=== PATIENT | female | born 1935 | race Caucasian/White ===

== ENCOUNTER 2018-11-23 23:32 | Emergency (ER) | payer BC, MEDICARE ==
[2018-11-23] MEDS ORDERED: Acetaminophen 500 MG TAB ONE ×2 (23:43→23:44)
[2018-11-24 00:04] LABS: #Eosinphils 0.2 thou/uL (0.0-0.7); #Monocytes 0.9 thou/uL (0.11-0.59); %Basophils 0.3 % (0.0-1.0); %Eosinophils 2.1 % (0.0-10.0); %Neutrophils 65.5 % (42.0-75.0); Hemoglobin 9.8 g/dL (12.0-16.0); Mean Corpuscular HGB CONC 32.7 g/dL (32.0-36.0); Mean Corpuscular Volume 88.6 fL (78.0-98.0); Mean Platelet Volume 6.9 fL (7.4-10.4); Platelet Count 362 thou/uL (130-400); RBC Distribution Width 12.7 % (11.5-14.5); Red Blood Cell (RBC) Count 3.39 mill/uL (4.20-5.40); White Blood Cell (WBC) Count 9.1 thou/uL (4.8-10.8)
[2018-11-24 00:12] LABS: Bilirubin Negative (Negative); Blood, Urine Negative (Negative); Clarity CLEAR (Clear); Glucose, Urine (Dipstick) Negative (Negative); Leukocyte Small (Negative); Nitrite Negative (Negative); Protein, Urine (Dipstick) Negative (Neg-Trace); Specific Gravity, Urine 1.004 (1.002-1.036); Urobilinogen 0.2 mg/dL (0.2-1.0)
[2018-11-24 00:14] LABS: Bacteria/HPF None Seen HPF (None Seen); Hyaline Casts/LPF 0-3 HYALINE CAST LPF (0-3 Hyaline); RBC/HPF 0-3 HPF (0-3); Squamous Epithelial None Seen HPF (0-3)
[2018-11-24 00:25] LABS: ALT (SGPT) 14 U/L (8-55); AST (SGOT) 19 U/L (5-34); Albumin 3.7 g/dL (3.4-4.8); Alkaline Phosphatase 201 U/L (40-150); Anion Gap 15 mmol/L (10-20); BUN (Urea Nitrogen) 43 mg/dL (9.8-20.1); Bilirubin, Total 0.2 mg/dL (0.2-1.2); Calc. Creatinine Clearance 0 mL/min (70-130); Calcium 9.7 mg/dL (7.8-10.44); Carbon Dioxide 21 mmol/L (23-31); Chloride 109 mmol/L (98-107); Estimated GFR-MDRD 20; Globulin 3.8 g/dL (2.4-3.5); Glucose 127 mg/dL (83-110); Lipase 82 U/L (8-78); Potassium 4.7 mmol/L (3.5-5.1); Protein, Total 7.5 g/dL (6.0-8.3); Sodium 140 mmol/L (136-145)
== END 2018-11-24 02:35 | disposition home or self-care (01) ==
LOC: ERS 23:32
DX: R10.30 Lower abdominal pain, unspecified (principal); G89.29 Other chronic pain; E03.9 Hypothyroidism, unspecified; F31.9 Bipolar disorder, unspecified; Z79.899 Other long term (current) drug therapy
CPT/HCPCS: 36415; 80053; 81003; 81015; 83690; 85025; 93005

== ENCOUNTER 2019-06-22 03:22 | Emergency (ER) | payer BC, MEDICARE ==
[2019-06-22 04:59] LABS: #Eosinphils 0.2 thou/uL (0.0-0.7); #Lymphocytes 2.2 thou/uL (1.20-3.40); #Monocytes 0.9 thou/uL (0.11-0.59); #Neutrophils 4.7 thou/uL (1.40-6.50); %Basophils 0.6 % (0.0-1.0); %Eosinophils 2.8 % (0.0-10.0); %Lymphocytes 27.7 % (21.0-51.0); %Monocytes 10.9 % (0.0-10.0); Hemoglobin 9.8 g/dL (12.0-16.0); Mean Corpuscular HGB CONC 32.8 g/dL (32.0-36.0); Mean Corpuscular Hemoglobin 29.2 pg (27.0-31.0); Mean Platelet Volume 6.9 fL (7.4-10.4); Platelet Count 275 thou/uL (130-400); RBC Distribution Width 13.8 % (11.5-14.5); Red Blood Cell (RBC) Count 3.35 mill/uL (4.20-5.40)
[2019-06-22 05:39] LABS: ALT (SGPT) 7 U/L (8-55); AST (SGOT) 13 U/L (5-34); Albumin 3.7 g/dL (3.4-4.8); Alkaline Phosphatase 74 U/L (40-150); Anion Gap 12 mmol/L (10-20); BUN (Urea Nitrogen) 40 mg/dL (9.8-20.1); Bilirubin, Total 0.2 mg/dL (0.2-1.2); Calc. Creatinine Clearance 0 mL/min (70-130); Calcium 9.8 mg/dL (7.8-10.44); Carbon Dioxide 24 mmol/L (23-31); Chloride 110 mmol/L (98-107); Estimated GFR-MDRD 19; Globulin 2.8 g/dL (2.4-3.5); Glucose 86 mg/dL (83-110); Potassium 4.4 mmol/L (3.5-5.1); Protein, Total 6.5 g/dL (6.0-8.3); Sodium 142 mmol/L (136-145)
--- NOTE | 2019-06-22 07:48 | ULT ---
PRELIMINARY REPORT/[facility]/EMERGENCY AFTER HOURS PROCEDURE: EXAM: US Duplex Bilateral Lower Extremity Veins EXAM DATE/TIME: 06/22/2019 5:00 AM CLINICAL HISTORY: 84 years old, female; Edema, localized; Lower extremity, bilateral; Leg, lower; Patient HX: Ble pain/edema x 1 wk; Additional info: Esrd TECHNIQUE: Imaging protocol: Real-time duplex ultrasound of the Bilateral Lower Extremities with 2-D golden scale, color Doppler flow and spectral waveform analysis with image documentation. Complete exam focused on the bilateral lower extremity veins. COMPARISON: No relevant prior studies available. FINDINGS: Right deep veins: Unremarkable. The common femoral, femoral, proximal profunda femoral and popliteal veins are patent without thrombus. Normal Doppler waveforms. Normal compressibility and/or augmentation response. Right superficial veins: Saphenofemoral junction is patent without thrombus. Left deep veins: Unremarkable. The common femoral, femoral, proximal profunda femoral and popliteal veins are patent without thrombus. Normal Doppler waveforms. Normal compressibility and/or augmentation response. Left superficial veins: Saphenofemoral junction is patent without thrombus. Soft tissues: Unremarkable. IMPRESSION: No acute findings. No evidence of deep vein thrombosis. Thank you for allowing us to participate in the care of your patient. Dictated and Authenticated by: Andrey Hsu MD 06/22/2019 5:50 AM Central Time ([place] & [place]) FINAL REPORT VENOUS DUPLEX SONOGRAM BILATERAL LOWER EXTREMITY: 06/22/2019 performed on an emergency basis at 0500 hrs HISTORY: Bilateral leg pain and edema. FINDINGS: Agree with the preliminary report by Dr. Hsu from [facility]. Good color and spectral Doppl er flow bilaterally. No sonographic evidence of DVT. Code QA. Transcribed Date/Time: 06/22/2019 8:39 AM
--- NOTE | 2019-06-22 08:19 | RAD ---
Chest one view HISTORY: Dyspnea. Leg swelling. FINDINGS: Cardiac silhouette is magnified by projection. Pulmonary vasculature is unremarkable. Media stinum is midline. No lobar consolidation or evidence of pneumothorax. teletype adjuster leads overlie the chest. IMPRESSION: No active cardiopulmonary abnormalities are demonstrated.
== END 2019-06-22 07:15 | disposition home or self-care (01) ==
LOC: ERS 03:22
DX: I12.0 Hypertensive chronic kidney disease with stage 5 chronic kidney disease or end stage renal disease (principal); N18.6 End stage renal disease; D63.1 Anemia in chronic kidney disease; C64.9 Malignant neoplasm of unspecified kidney, except renal pelvis; M79.89 Other specified soft tissue disorders; F31.9 Bipolar disorder, unspecified; E03.9 Hypothyroidism, unspecified; Z79.899 Other long term (current) drug therapy
CPT/HCPCS: 36415; 71045; 80053; 83880; 84484; 85025; 93005; 93970

== ENCOUNTER 2019-12-15 00:46 | Emergency (ER) | payer BC ==
[2019-12-15] MEDS ORDERED: Benzonatate 100 MG CAP ONE (01:27)
--- NOTE | 2019-12-15 08:35 | RAD ---
RADIOGRAPH CHEST 1 VIEW: Date: 12/15/2019. Time: 12:50 a.m. HISTORY: An 84-year-old female with productive cough. COMPARISON: 06/22/2019. FINDINGS: At the right base, there is a small irregular, apparently new focal density. The rest of the visuali zed lung torres are grossly clear. Lateral costophrenic angles are not effaced. No cardiomegaly or pneumothorax. IMPRESSION: 1. Questionable early infiltrate at the right lung base. 2. Recommend followup with PA and lateral views. JN [] POS: [facility]
== END 2019-12-15 01:29 | disposition home or self-care (01) ==
LOC: ERS 00:46
DX: R05 Cough (principal); I12.9 Hypertensive chronic kidney disease with stage 1 through stage 4 chronic kidney disease, or unspecified chronic kidney disease; N18.9 Chronic kidney disease, unspecified; E03.9 Hypothyroidism, unspecified; F31.9 Bipolar disorder, unspecified; Z79.899 Other long term (current) drug therapy
CPT/HCPCS: 71045

== ENCOUNTER 2019-12-15 10:41 | Outpatient (CLI) | payer BC ==
--- NOTE | 2019-12-15 13:09 | CT ---
CT Abdomen WO Con: 12/15/2019 12:00 AM HISTORY: Right kidney mass COMPARISON: 05/31/2017, 05/07/2017 TECHNIQUE: Multiple contiguous axial images were obtained and a CT of the abdomen without IV contrast. Coronal a nd sagittal reformats were performed. FINDINGS: This examination is limited for the evaluation of solid organs and vascular structures due to the lac k of intravenous contrast. Lower Chest: within normal limits. Abdomen: Liver: within normal limits. Bile Ducts: Normal caliber. Gallbladder: Multiple calcified gallstones Pancreas: within normal limits. Spleen: within normal limits. Adrenals: within normal limits. Kidneys: There is a 4.2 cm solid mass in the posterior aspect of the right kidney. This appears to martin ve enlarged compared to the prior examination. Masslike areas of density are seen in the perinephric fat adjacent to this mass. A 2.2 cm hypodensity emanating from the superior pole the righ t kidney likely represents a cyst. There is cortical thinning of the left kidney. Bowel: Normal caliber. Mesenteric Lymph Nodes: No enlarged mesenteric lymph nodes. Peritoneum: No ascites or free air, no fluid collection. Vessels: Normal caliber aorta Retroperitoneum: within normal limits. Abdominal Wall: within normal limits. Bones: Degenerative changes are seen in the spine. There appear to be mixed lytic/sclerotic lesions w ithin the sacrum and lower lumbar spine. IMPRESSION: 1. Enlarging right renal mass is concerning for renal cell carcinoma. 2. Cholelithiasis
== END 2019-12-15 10:42 | disposition home or self-care (01) ==
LOC: BICCT 10:41
PROVIDERS: ATTEND Urology
DX: N28.89 Other specified disorders of kidney and ureter (principal); K80.20 Calculus of gallbladder without cholecystitis without obstruction
CPT/HCPCS: 74150

== ENCOUNTER 2019-12-18 20:57 | Emergency (ER) | payer BC ==
--- NOTE | 2019-12-18 21:45 | RAD ---
XR Chest Pa Lat STANDARD HISTORY: Cough. COMPARISON: None. FINDINGS: Heart size is within normal limits. Aorta is mildly tortuous. The lungs are clear of infilt rates. Chronic appearing blunting to the right costophrenic angle is noted. IMPRESSION: No active intrathoracic disease.
[2019-12-18 22:01] LABS: #Basophils 0.1 thou/uL (0.0-0.2); #Eosinphils 0.4 thou/uL (0.0-0.7); #Lymphocytes 2.3 thou/uL (1.20-3.40); #Monocytes 0.8 thou/uL (0.11-0.59); %Basophils 0.5 % (0.0-1.0); %Eosinophils 4.1 % (0.0-10.0); %Monocytes 8.8 % (0.0-10.0); %Neutrophils 62.6 % (42.0-75.0); Hemoglobin 10.1 g/dL (12.0-16.0); Mean Corpuscular HGB CONC 32.5 g/dL (32.0-36.0); Mean Corpuscular Hemoglobin 28.1 pg (27.0-31.0); Mean Corpuscular Volume 86.5 fL (78.0-98.0); Mean Platelet Volume 7.1 fL (7.4-10.4); Platelet Count 376 thou/uL (130-400); RBC Distribution Width 13.3 % (11.5-14.5); Red Blood Cell (RBC) Count 3.61 mill/uL (4.20-5.40); White Blood Cell (WBC) Count 9.6 thou/uL (4.8-10.8)
[2019-12-18 22:28] LABS: ALT (SGPT) 20 U/L (8-55); AST (SGOT) 21 U/L (5-34); Albumin 4.1 g/dL (3.4-4.8); Alkaline Phosphatase 80 U/L (40-110); Anion Gap 9 mmol/L (10-20); BUN (Urea Nitrogen) 33 mg/dL (9.8-20.1); Bilirubin, Total 0.2 mg/dL (0.2-1.2); Calc. Creatinine Clearance 0 mL/min (70-130); Calcium 10.6 mg/dL (7.8-10.44); Carbon Dioxide 28 mmol/L (23-31); Chloride 109 mmol/L (98-107); Estimated GFR-MDRD 19; Globulin 3.4 g/dL (2.4-3.5); Glucose 105 mg/dL (83-110); Potassium 4.6 mmol/L (3.5-5.1); Protein, Total 7.5 g/dL (6.0-8.3); Sodium 141 mmol/L (136-145)
== END 2019-12-18 23:28 | disposition home or self-care (01) ==
LOC: ERS 20:57
DX: J18.9 Pneumonia, unspecified organism (principal); R60.0 Localized edema; E03.9 Hypothyroidism, unspecified; I12.9 Hypertensive chronic kidney disease with stage 1 through stage 4 chronic kidney disease, or unspecified chronic kidney disease; N18.9 Chronic kidney disease, unspecified; F31.9 Bipolar disorder, unspecified; Z79.899 Other long term (current) drug therapy
CPT/HCPCS: 36415; 71046; 80053; 83880; 85025

== ENCOUNTER 2019-12-29 03:08 | Emergency (ER) | payer BC | END 2019-12-29 04:23 | disposition home or self-care (01) | LOC: ERS 03:08 | DX: R60.0 Localized edema (principal); M79.89 Other specified soft tissue disorders; I10 Essential (primary) hypertension; F31.9 Bipolar disorder, unspecified; E03.9 Hypothyroidism, unspecified; I12.9 Hypertensive chronic kidney disease with stage 1 through stage 4 chronic kidney disease, or unspecified chronic kidney disease; N18.9 Chronic kidney disease, unspecified; Z79.899 Other long term (current) drug therapy | CPT/HCPCS: 99282 ==

== ENCOUNTER 2020-01-06 05:44 | Observation (INO) | payer BC ==
[2020-01-06 06:51] LABS: #Basophils 0.1 thou/uL (0.0-0.2); #Eosinphils 0.3 thou/uL (0.0-0.7); #Lymphocytes 2.1 thou/uL (1.20-3.40); #Monocytes 0.5 thou/uL (0.11-0.59); #Neutrophils 5.1 thou/uL (1.40-6.50); %Basophils 0.9 % (0.0-1.0); %Eosinophils 3.9 % (0.0-10.0); %Lymphocytes 26.1 % (21.0-51.0); %Monocytes 6.3 % (0.0-10.0); %Neutrophils 62.8 % (42.0-75.0); Hemoglobin 10.7 g/dL (12.0-16.0); Mean Corpuscular HGB CONC 32.2 g/dL (32.0-36.0); Mean Corpuscular Hemoglobin 29.2 pg (27.0-31.0); Mean Corpuscular Volume 90.6 fL (78.0-98.0); Mean Platelet Volume 7.3 fL (7.4-10.4); Platelet Count 329 thou/uL (130-400); RBC Distribution Width 15.1 % (11.5-14.5); Red Blood Cell (RBC) Count 3.65 mill/uL (4.20-5.40); White Blood Cell (WBC) Count 8.1 thou/uL (4.8-10.8)
[2020-01-06 07:11] LABS: ALT (SGPT) 15 U/L (8-55); AST (SGOT) 17 U/L (5-34); Albumin 4.1 g/dL (3.4-4.8); Alkaline Phosphatase 86 U/L (40-110); Anion Gap 15 mmol/L (10-20); BUN (Urea Nitrogen) 47 mg/dL (9.8-20.1); Bilirubin, Total 0.3 mg/dL (0.2-1.2); Calc. Creatinine Clearance 0 mL/min (70-130); Carbon Dioxide 18 mmol/L (23-31); Chloride 115 mmol/L (98-107); Estimated GFR-MDRD 20; Globulin 2.9 g/dL (2.4-3.5); Glucose 111 mg/dL (83-110); Sodium 143 mmol/L (136-145)
[2020-01-06 08:05] LABS: Bacteria/HPF None Seen HPF (None Seen); Bilirubin Negative (Negative); Blood, Urine Negative (Negative); Clarity Clear (Clear); Glucose, Urine (Dipstick) Normal (Negative); Leukocyte 25 Leu/uL (Negative); Nitrite Negative (Negative); Protein, Urine (Dipstick) Negative (Neg-Trace); RBC/HPF 0-3 HPF (0-3); Squamous Epithelial None Seen HPF (0-3); Urobilinogen Normal mg/dL (Less than 2); WBC/HPF 0-3 HPF (0-3)
[2020-01-06] MEDS ORDERED: Nitroglycerin 2% Ointment 1 INCH/1 GM Packet ONE (08:27)
[2020-01-06] MEDS ORDERED: Clopidogrel Bisulfate 75 MG TAB ONE (08:28)
[2020-01-06 09:44] LABS: Troponin I 0.014 ng/mL (< 0.028)
--- NOTE | 2020-01-06 09:44 | RAD ---
CHEST TWO VIEWS: HISTORY: Chest pain. COMPARISON: FINDINGS: Two views of the chest show normal sized cardiomediastinal silhouette. There is no evidence of consol idation, mass, or pleural effusion. Degenerative changes are seen in the spine. IMPRESSION: No evidence of acute cardiopulmonary disease. POS: [facility]
--- NOTE | 2020-01-06 10:05 | HP ---
PRIMARY CARE PROVIDER: Dr. Trevon Sepulveda. HISTORY OF PRESENT ILLNESS: Referred to the Hospitalist Service by [facility]. The patient presents with chest pain started about 03:00 a.m., lasted about a half an hour, described as a pressure sensation, constant, some radiation to the left arm. No shortness of breath. No sweats. No nausea. She has had some similar like pains off and on for years. PAST MEDICAL HISTORY: Pertinent for; 1. Hypertension. 2. Chronic kidney disease stage 4. 3. Unresected renal cell carcinoma on the right for about 1 year. 4. Hypothyroidism. CURRENT MEDICATIONS: 1. Levothyroxine 137 mcg a day. 2. Doxazosin 1 mg a day. 3. Metoprolol 25 mg a day. 4. Calcium D3 one tablet a day. ALLERGIES: THE PATIENT IS UNABLE TO TAKE ASPIRIN AND NSAID SECONDARY TO KIDNEY FAILURE. PAST SURGICAL HISTORY: 1. She has had renal biopsy about a year ago. 2. Exploratory lap in 1964 revealed fibroids, incidental appendectomy at that time. 3. She is post hysterectomy in 1985. 4. She has had two C sections in the past. FAMILY HISTORY: Father of coronary artery disease. Mother of tuberculosis. SOCIAL HISTORY: . Full code status. , next of kin. Does not smoke. Drinks occasional wine. REVIEW OF SYSTEMS: GENERAL: No headaches, dizziness, or fainting. EYES: She wears glasses. No double vision, blurred vision, or flashing lights. She does have floaters. EARS, NOSE, AND THROAT: No ear pain or drainage. No nasal bleeding. No trouble swallowing. CARDIAC: No orthopnea or paroxysmal nocturnal dyspnea. RESPIRATIONS: She has mild cough. She was diagnosed as bronchitis 2 weeks ago and has been on oral antibiotics. GASTROINTESTINAL: No nausea, vomiting, diarrhea, or constipation. GENITOURINARY: No hematuria or dysuria. MUSCULOSKELETAL: She has edema/swelling in her legs. She relates it to her kidney disease. No pain in muscles or joints. NEUROLOGICAL: No strokes, seizures, or focal weakness. PSYCHIATRIC: No anxiety or depression. SKIN: No bruising, bleeding, or rash. HEME/LYMPH: No tender or swollen lymph nodes in axilla, inguinal, or cervical area. PHYSICAL EXAMINATION: GENERAL: The patient is alert, cooperative, pleasant lady, in no distress. VITAL SIGNS: Blood pressure has ranged from 155/71 to 178/77, pulse is 80 plus or minus, respirations 16, O2 saturation in the high 90s on room air, temperature 97.9. HEAD, EYES, EARS, NOSE, AND THROAT: Revealed pupils are equal, round, and reactive. Extraocular movements are intact. Sclerae are white. Tympanic membranes are clear. Nose is clear. Oral mucous membranes are wet. NECK: Supple without jugular venous distention, adenopathy, or thyromegaly. CHEST: Clear to auscultation and percussion. HEART: Regular rate and rhythm. First and second heart sounds are clear. There are no appreciated murmurs or gallops. ABDOMEN: Soft. Bowel sounds are normal. There is no hepatosplenomegaly. No mass. No rebound. No bruits. EXTREMITIES: Revealed 1+ edema with no cyanosis or clubbing. Pulses; carotid, radial, femoral, and dorsalis pedis pulses are intact and symmetric. SKIN: Warm and dry without bruises or rash. HEME/LYMPH: Reveals no tender or swollen lymph nodes in axilla, inguinal, or cervical area. DIAGNOSTIC DATA: EKG, regular sinus rhythm within normal limits, reviewed by me. Chest x-ray personally reviewed, vertical heart. No cardiomegaly, CHF, infiltrate, mass. LABORATORY DATA: CBC; white count 8.1, hemoglobin 10.7 with normocytic normochromic indices, platelet count 329,000. Creatinine 2.29, BUN 47, chloride 115, CO2 of 18. Liver function tests normal. Initial creatinine less than 0.01. ADMITTING DIAGNOSES: 1. Chest pain, somewhat atypical. The patient has been given Plavix in the emergency room. 2. Chronic kidney disease stage 4, followed by Dr. Voss. 3. 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 Medel. 4. Hypertension. 5. Hypothyroidism, on therapy. PLAN: Nuclear medicine, cardiac stress test review afterwards. Job ID: [id number]
[2020-01-06] MEDS ORDERED: Ondansetron PF 4 MG/2 ML Vial IVP PRN (10:42)
[2020-01-06] MEDS ORDERED: Ondansetron ODT 4 MG TAB PO PRN (10:42)
[2020-01-06 10:53] VITALS: BMI 26.6
[2020-01-06] MEDS ORDERED: ADENOSINE 60 MG/20 ML VIAL ONE (12:17)
[2020-01-06 15:13] VITALS: BP 186/77; TEMP 97.8
--- NOTE | 2020-01-06 16:31 | NM ---
Nuclear medicine myocardial perfusion scan: 01/06/2020 COMPARISON: None HISTORY: Chest pain with hypertension TECHNIQUE: SPECT imaging of the left ventricular myocardium obtained during stress and rest following the intravenous administration of 27.5 and 9.0mCi technetium 99 M labeled sestamibi respectively. FINDINGS: No discrete reversible defect. Diaphragmatic attenuation noted at the level of the inferior wall. TID is 1.1. Left ventricular wall motion appears within normal limits. End-diastolic volume is 99 mL and end systolic volume is 48 mL. Left ventricular ejection fraction is estimated at 51%. IMPRESSION: No discrete reversible defect. Normal left ventricular wall motion. Estimated LVEF of 51%.
[2020-01-07] MEDS ORDERED: Clopidogrel Bisulfate 75 MG TAB PO SCH (09:00)
--- NOTE | 2020-01-08 08:44 | DIS ---
DATE OF ADMISSION: 01/06/2020 DATE OF DISCHARGE: 01/06/2020 PRIMARY CARE PROVIDER: Dr. Trevon Sepulveda. DISPOSITION: Discharged home. FINAL DIAGNOSES: 1. Noncardiac chest pain. 2. Hypertension. 3. Chronic kidney disease, stage 4. 4. Renal cell carcinoma. DISCHARGE MEDICATIONS: Same as her home medicines: 1. Ferrous sulfate 325 mg a day. 2. Calcium plus D daily. 3. Levothyroxine 37 mcg a day. 4. Cardura 1 mg at bedtime. 5. Divalproex 500 mg p.o. at bedtime, ER. 6. Metoprolol 50 mg a day. The patient is intolerant of NSAIDs and aspirin secondary to renal failure. DIET: Heart healthy. CODE STATUS: Full. PENDING AT THE TIME OF DISCHARGE: Nothing. HOSPITAL COURSE: The patient presented to emergency room with chest pain started about 3 a.m., lasted a half an hour, pressure sensation. EKG was unrevealing. Chest x-ray was unrevealing. CBC showed a mild anemia consistent with chronic kidney disease. Cardiac enzymes normal x3. Creatinine 2.29, BUN 47, consistent with old findings. Nuclear medicine stress test was without evidence of reversible ischemia, EF of 51%. This was discussed with the patient. She is being discharged for followup with her PCP in 3 days on her home medications. CONSULTATIONS: No consultations. PROCEDURES PERFORMED: No procedures. Job ID: [id number] MTDD
== END 2020-01-06 17:56 ==
LOC: ERS 05:44 → 2SW 08:29
PROVIDERS: ADMIT Internal Medicine; ATTEND Internal Medicine
DX: R07.89 Other chest pain (principal); I12.9 Hypertensive chronic kidney disease with stage 1 through stage 4 chronic kidney disease, or unspecified chronic kidney disease; N18.4 Chronic kidney disease, stage 4 (severe); C64.1 Malignant neoplasm of right kidney, except renal pelvis; E03.9 Hypothyroidism, unspecified; Z79.899 Other long term (current) drug therapy; Z88.6 Allergy status to analgesic agent
CPT/HCPCS: 36415; 71046; 78452; 80053; 81003; 81015; 83880; 84484; 85025; 87804; 93005; 93017; 94760; A9500; G0378; J0153

== ENCOUNTER 2020-05-31 06:09 | Emergency (ER) | payer BC, OTHER ==
[2020-05-31 14:46] LABS: SARS-CoV-2 MS2 Positive; SARS-CoV-2 N Gene Negative; SARS-CoV-2 S Gene Negative; SARS-CoV-2 orf1ab Negative
== END 2020-05-31 06:37 | disposition home or self-care (01) ==
LOC: ERS 06:09
DX: J02.9 Acute pharyngitis, unspecified (principal); R05 Cough; R52 Pain, unspecified; E03.9 Hypothyroidism, unspecified; I10 Essential (primary) hypertension; F31.9 Bipolar disorder, unspecified; Z20.828 Contact with and (suspected) exposure to other viral communicable diseases; Z85.528 Personal history of other malignant neoplasm of kidney
CPT/HCPCS: 87635; 99283; U0003

== ENCOUNTER 2020-06-11 12:22 | Outpatient (CLI) | payer BC ==
--- NOTE | 2020-06-11 13:19 | ULT ---
ULTRASOUND RETROPERITONEUM COMPLETE: (RENAL) DATE: 06/11/2020 HISTORY: 85-year-old female with clear cell carcinoma of right kidney and stage IV chronic kidney disease. COMPARISON: No prior renal ultrasounds. FINDINGS: Right kidney: 11.5 x 8 x 7.5 cm. Left kidney: 10.5 x 5.5 x 6 cm. No hydronephrosis bilaterally. Circumscribed intermediate echogenicity (isoechoic to renal parenchyma) 4 x 3.3 x 3.5 cm solid mass a t posterior aspect of right renal lower pole. Several bilateral renal cysts. The most prominent are as follows: 1.5 cm right renal lower pole cyst. 2.5 cm right renal upper pole cyst. 2 x 1.5 cm left renal lower pole cyst. No abnormality of bladder identified. Bladder volume 375 mL at time of scan. IMPRESSION: 1) 4 cm right renal tumor mass. 2) several bilateral renal cysts.
== END 2020-06-11 12:23 | disposition home or self-care (01) ==
LOC: BICULT 12:22
PROVIDERS: ATTEND Urology
DX: C64.1 Malignant neoplasm of right kidney, except renal pelvis (principal); N28.1 Cyst of kidney, acquired; N28.89 Other specified disorders of kidney and ureter
CPT/HCPCS: 76770

== ENCOUNTER 2022-04-22 10:02 | Emergency (ER) | payer BC ==
[2022-04-22] MEDS ORDERED: Lorazepam 2 MG/ML VIAL ONE (10:47)
[2022-04-22] MEDS ORDERED: Haloperidol Lactate 5 MG/ML VIAL ONE (10:54)
[2022-04-22 11:36] LABS: Acetaminophen Less than 10.0 mcg/mL (10.0-30.0); Alcohol Less than 10 mg/dL (Less than 10); Salicylate Less than 8.0 mg/dL (15.0-30.0)
[2022-04-22 11:38] LABS: ALT (SGPT) 13 U/L (8-55); AST (SGOT) 20 U/L (5-34); Albumin 3.7 g/dL (3.4-4.8); Alkaline Phosphatase 111 U/L (40-110); Anion Gap 17 mmol/L (10-20); BUN (Urea Nitrogen) 54 mg/dL (9.8-20.1); Bilirubin, Total 0.5 mg/dL (0.2-1.2); CK (CPK) 60 U/L (29-168); Calc. Creatinine Clearance 0 mL/min (70-130); Calcium 9.8 mg/dL (7.8-10.44); Carbon Dioxide 18 mmol/L (23-31); Chloride 109 mmol/L (98-107); Globulin 3.3 g/dL (2.4-3.5); Glucose 148 mg/dL (83-110); Potassium 4.5 mmol/L (3.5-5.1); Sodium 139 mmol/L (136-145)
[2022-04-22 11:39] LABS: #Basophils 0.1 thou/uL (0.0-0.2); #Eosinphils 0.1 thou/uL (0.0-0.7); #Lymphocytes 1.2 thou/uL (1.20-3.40); #Monocytes 0.7 thou/uL (0.11-0.59); #Neutrophils 9.8 thou/uL (1.40-6.50); %Basophils 0.6 % (0.0-1.0); %Eosinophils 0.9 % (0.0-10.0); %Monocytes 5.6 % (0.0-10.0); %Neutrophils 82.9 % (42.0-75.0); Band 5 % (5-11); Eosinophils 1 % (0-10); Hemoglobin 10.8 g/dL (12.0-16.0); Hypochromia SLIGHT = 6-15 cells (100X) (0-5/hpf); Lymphocytes 8 % (21-51); MDiff Complete? YES; Mean Corpuscular Hemoglobin 24.8 pg (27.0-31.0); Mean Corpuscular Volume 82.6 fL (78.0-98.0); Mean Platelet Volume 8.6 fL (7.4-10.4); Monocytes 10 % (0-10); Neutrophil 76 % (42-75); Platelet Count 244 thou/uL (130-400); Platelet Morphology Comment Appears Adequate; Polychromasia SLIGHT = 2-3 cells (100X) (0-2/hpf); RBC Distribution Width 18.3 % (11.5-14.5); Red Blood Cell (RBC) Count 4.35 mill/uL (4.20-5.40); White Blood Cell (WBC) Count 12.2 thou/uL (4.8-10.8)
[2022-04-22 13:58] LABS: Bacteria/HPF None Seen HPF (None Seen); Bilirubin Negative (Negative); Blood, Urine Trace (Negative); Clarity Clear (Clear); Glucose, Urine (Dipstick) Normal (Negative); Ketone, Urine Negative (Negative); Leukocyte Negative Leu/uL (Negative); Nitrite Negative (Negative); Protein, Urine (Dipstick) Negative (Neg-Trace); RBC/HPF 0-3 HPF (0-3); Specific Gravity, Urine 1.006 (1.002-1.036); Squamous Epithelial None Seen HPF (0-3); Urobilinogen Normal mg/dL (Less than 2); WBC/HPF 0-3 HPF (0-3)
[2022-04-22 14:05] LABS: Amphetamine Not Detected (NotDetected); Barbiturates Screen Not Detected (NotDetected); Benzodiazepine Screen Not Detected (NotDetected); Cocaine Metabolite Screen Not Detected (NotDetected); Methadone Not Detected (NotDetected); Methamphetamine Not Detected (NotDetected); Opiate Screen Detected (NotDetected); Oxycodone Screen Not Detected (NotDetected); Phencyclidine (PCP) Not Detected (NotDetected); THC/Cannabinoid Screen Not Detected (NotDetected); Tricyclic Screen Not Detected (NotDetected)
[2022-04-22 16:05] LABS: SARS-CoV-2 NAA Rapid Test Not Detected (NotDetected)
[2022-04-23] MEDS ORDERED: Doxycycline 100 MG CAP PO SCH (09:00)
[2022-04-23] MEDS ORDERED: Acetaminophen 325 MG TAB PO PRN (10:12)
[2022-04-23] MEDS ORDERED: hydrOXYzine Pamoate 25 mg Capsule PO PRN (10:12)
[2022-04-23] MEDS ORDERED: Levothyroxine 175 MCG TAB PO SCH (10:15)
[2022-04-23] MEDS ORDERED: OLANZapine 5 MG TAB PO SCH (10:15)
[2022-04-23] MEDS ORDERED: Haloperidol Lactate 5 MG/ML VIAL IM SCH (10:15)
[2022-04-23] MEDS ORDERED: Lorazepam 2 MG/ML VIAL IM SCH (10:15)
[2022-04-23] MEDS ORDERED: traZODone HCl 50 MG TAB PO PRN (10:21)
[2022-04-23] MEDS ORDERED: Amoxicillin/Potassium Clav 500 MG TAB PO SCH (10:30)
[2022-04-23] MEDS ORDERED: Doxazosin Mesylate 1 MG TAB PO SCH (10:30)
[2022-04-23] MEDS ORDERED: Ziprasidone 20 MG CAP PO SCH (10:30)
[2022-04-23] MEDS ORDERED: Furosemide 40 MG TAB ONE (10:51)
[2022-04-23] MEDS ORDERED: Nicotine 14 MG PATCH TOP SCH (11:00)
[2022-04-23] MEDS ORDERED: risperiDONE 1 MG TAB PO SCH (21:00)
== END 2022-04-23 20:11 ==
LOC: ERS 10:02
DX: F31.9 Bipolar disorder, unspecified (principal); I12.9 Hypertensive chronic kidney disease with stage 1 through stage 4 chronic kidney disease, or unspecified chronic kidney disease; N18.9 Chronic kidney disease, unspecified; E03.9 Hypothyroidism, unspecified; Z20.822 Contact with and (suspected) exposure to COVID-19; Z79.890 Hormone replacement therapy; Z79.899 Other long term (current) drug therapy
CPT/HCPCS: 36415; 51701; 80053; 80306; 80307; 81003; 81015; 82550; 84443; 85025; 93005; 96372; J1630; J2060; U0002

== ENCOUNTER 2022-09-09 08:14 | Inpatient (IN) | payer BC ==
[2022-09-09] MEDS ORDERED: CEFAZOLIN 2 GM VIAL ONE (08:48)
[2022-09-09 09:12] LABS: #Eosinphils 0.3 thou/uL (0.0-0.7); %Monocytes 7.7 % (0.0-10.0); Mean Corpuscular Volume 83.9 fL (78.0-98.0); Mean Platelet Volume 7.8 fL (7.4-10.4)
[2022-09-09 09:17] LABS: #Lymphocytes 1.1 thou/uL (1.20-3.40); #Monocytes 0.6 thou/uL (0.11-0.59); #Neutrophils 5.6 thou/uL (1.40-6.50); %Basophils 0.3 % (0.0-1.0); %Eosinophils 4.1 % (0.0-10.0); %Lymphocytes 14.1 % (21.0-51.0); %Neutrophils 73.8 % (42.0-75.0); Hemoglobin 8.6 g/dL (12.0-16.0); Mean Corpuscular HGB CONC 30.4 g/dL (32.0-36.0); Mean Corpuscular Hemoglobin 25.5 pg (27.0-31.0); Platelet Count 280 thou/uL (130-400); RBC Distribution Width 16.1 % (11.5-14.5); Red Blood Cell (RBC) Count 3.35 mill/uL (4.20-5.40); White Blood Cell (WBC) Count 7.6 thou/uL (4.8-10.8)
[2022-09-09 09:25] LABS: ALT (SGPT) 14 U/L (8-55); AST (SGOT) 17 U/L (5-34); Albumin 3.6 g/dL (3.4-4.8); Alkaline Phosphatase 107 U/L (40-110); Anion Gap 15 mmol/L (10-20); BUN (Urea Nitrogen) 56 mg/dL (9.8-20.1); Bilirubin, Total 0.3 mg/dL (0.2-1.2); Calc. Creatinine Clearance 0 mL/min (70-130); Calcium 9.6 mg/dL (7.8-10.44); Carbon Dioxide 20 mmol/L (23-31); Chloride 110 mmol/L (98-107); Estimated GFR 14; Globulin 3.1 g/dL (2.4-3.5); Glucose 85 mg/dL (83-110); Potassium 4.8 mmol/L (3.5-5.1); Protein, Total 6.7 g/dL (5.8-8.1); Sodium 140 mmol/L (136-145)
[2022-09-09] MEDS ORDERED: Senokot S 8.6-50 MG TAB PO PRN (12:04)
[2022-09-09] MEDS ORDERED: Ondansetron PF 4 MG/2 ML Vial IVP PRN (12:14)
[2022-09-09] MEDS ORDERED: Ondansetron ODT 4 MG TAB PO PRN (12:14)
[2022-09-09 12:32] LABS: Troponin I 0.017 ng/mL (< 0.028)
[2022-09-09] MEDS ORDERED: CEFAZOLIN 1 GM VIAL SLOW IVP SCH (14:00)
[2022-09-09] MEDS: Furosemide 40 MG/4 ML VIAL SLOW IVP SCH ×2 (14:38→14:51)
[2022-09-09] MEDS: Albumin 25% 25 GM/100 ML BOT IVPB SCH ×3 (14:38→21:00)
[2022-09-09 15:14] LABS: Troponin I 0.013 ng/mL (< 0.028)
[2022-09-09] MEDS ORDERED: Furosemide 100 MG/10 ML VIAL SLOW IVP SCH (18:00)
[2022-09-09 19:08] LABS: Troponin I 0.015 ng/mL (< 0.028)
[2022-09-09 20:26] LABS: SARS-CoV-2 NAA Rapid Test Not Detected (NotDetected)
[2022-09-09] MEDS: hydrALAZINE 25 MG TAB PO SCH (21:03)
[2022-09-09] MEDS: Isosorbide Dinitrate 20 MG TAB PO SCH (21:04)
[2022-09-09] MEDS ORDERED: CEFAZOLIN 1 GM in Sodium Chloride 0.9% 100 ML IVPB SCH (22:00)
[2022-09-09] MEDS: Acetaminophen 325 MG TAB PO PRN (22:32)
[2022-09-09] MEDS: CEFAZOLIN 1 GM in Sodium Chloride 0.9% 100 ML IVPB SCH (23:23)
[2022-09-10 02:26] LABS: Bacteria/HPF None Seen HPF (None Seen); Bilirubin Negative (Negative); Blood, Urine Negative (Negative); Clarity Clear (Clear); Glucose, Urine (Dipstick) Normal (Negative); Ketone, Urine Negative (Negative); Leukocyte Negative Leu/uL (Negative); Nitrite Negative (Negative); Protein, Urine (Dipstick) Negative (Neg-Trace); RBC/HPF 0-3 HPF (0-3); Specific Gravity, Urine 1.006 (1.002-1.036); Squamous Epithelial None Seen HPF (0-3); Urobilinogen Normal mg/dL (Less than 2); WBC/HPF 0-3 HPF (0-3)
[2022-09-10] MEDS: Albumin 25% 25 GM/100 ML BOT IVPB SCH ×2 (03:35→09:59)
[2022-09-10 04:48] LABS: #Eosinphils 0.3 thou/uL (0.0-0.7); #Lymphocytes 1.1 thou/uL (1.20-3.40); #Monocytes 0.6 thou/uL (0.11-0.59); #Neutrophils 4.6 thou/uL (1.40-6.50); %Basophils 0.6 % (0.0-1.0); %Eosinophils 4.5 % (0.0-10.0); %Lymphocytes 16.5 % (21.0-51.0); %Neutrophils 69.4 % (42.0-75.0); Hemoglobin 7.8 g/dL (12.0-16.0); Mean Corpuscular HGB CONC 31.6 g/dL (32.0-36.0); Mean Corpuscular Hemoglobin 26.2 pg (27.0-31.0); Mean Platelet Volume 8.2 fL (7.4-10.4); Platelet Count 236 thou/uL (130-400); RBC Distribution Width 16.2 % (11.5-14.5); Red Blood Cell (RBC) Count 2.95 mill/uL (4.20-5.40); White Blood Cell (WBC) Count 6.7 thou/uL (4.8-10.8)
[2022-09-10 05:02] LABS: Anion Gap 17 mmol/L (10-20); BUN (Urea Nitrogen) 62 mg/dL (9.8-20.1); Calc. Creatinine Clearance 15 mL/min (70-130); Carbon Dioxide 20 mmol/L (23-31); Chloride 111 mmol/L (98-107); Estimated GFR 13; Glucose 84 mg/dL (83-110); Potassium 5.5 mmol/L (3.5-5.1); Sodium 142 mmol/L (136-145)
[2022-09-10] MEDS ORDERED: Furosemide 40 MG/4 ML VIAL SLOW IVP SCH (06:00)
[2022-09-10] MEDS: Acetaminophen 325 MG TAB PO PRN ×2 (06:13→20:33)
[2022-09-10] MEDS: Furosemide 40 MG/4 ML VIAL SLOW IVP SCH ×2 (06:13→14:31)
[2022-09-10] MEDS: hydrALAZINE 25 MG TAB PO SCH ×3 (09:59→20:44)
[2022-09-10] MEDS: Isosorbide Dinitrate 20 MG TAB PO SCH ×3 (10:00→20:33)
[2022-09-10] MEDS: CEFAZOLIN 1 GM in Sodium Chloride 0.9% 100 ML IVPB SCH ×2 (10:38→20:33)
[2022-09-10] MEDS ORDERED: hydrALAZINE 25 MG TAB PO SCH (11:15)
[2022-09-10] MEDS: DOBUTamine 500 mg/250 ml 500 MG in Premix Bag 1 BAG IVPB SCH (12:11)
[2022-09-11 04:46] LABS: #Eosinphils 0.1 thou/uL (0.0-0.7); #Lymphocytes 0.8 thou/uL (1.20-3.40); #Monocytes 0.7 thou/uL (0.11-0.59); #Neutrophils 6.2 thou/uL (1.40-6.50); %Basophils 0.1 % (0.0-1.0); %Eosinophils 1.6 % (0.0-10.0); %Lymphocytes 10.1 % (21.0-51.0); %Monocytes 9.3 % (0.0-10.0); %Neutrophils 78.8 % (42.0-75.0); Hemoglobin 7.5 g/dL (12.0-16.0); Mean Corpuscular HGB CONC 31.7 g/dL (32.0-36.0); Mean Corpuscular Hemoglobin 26.2 pg (27.0-31.0); Mean Corpuscular Volume 82.7 fL (78.0-98.0); Mean Platelet Volume 7.8 fL (7.4-10.4); Platelet Count 216 thou/uL (130-400); RBC Distribution Width 16.1 % (11.5-14.5); Red Blood Cell (RBC) Count 2.85 mill/uL (4.20-5.40); White Blood Cell (WBC) Count 7.8 thou/uL (4.8-10.8)
[2022-09-11] MEDS: Acetaminophen 325 MG TAB PO PRN ×2 (05:57→22:20)
[2022-09-11] MEDS: Furosemide 40 MG/4 ML VIAL SLOW IVP SCH ×2 (05:57→13:41)
[2022-09-11 06:01] LABS: BUN (Urea Nitrogen) 66 mg/dL (9.8-20.1); Calc. Creatinine Clearance 15 mL/min (70-130); Calcium 9.6 mg/dL (7.8-10.44); Carbon Dioxide 20 mmol/L (23-31); Chloride 109 mmol/L (98-107); Estimated GFR 12; Glucose 97 mg/dL (83-110); Potassium 4.5 mmol/L (3.5-5.1); Sodium 140 mmol/L (136-145)
[2022-09-11 06:21] LABS: Anion Gap 16 mmol/L (10-20)
[2022-09-11] MEDS: CEFAZOLIN 1 GM in Sodium Chloride 0.9% 100 ML IVPB SCH ×2 (10:25→21:40)
[2022-09-11] MEDS: Isosorbide Dinitrate 20 MG TAB PO SCH ×3 (10:26→21:39)
[2022-09-11] MEDS: hydrALAZINE 25 MG TAB PO SCH ×3 (10:26→21:00)
[2022-09-12] MEDS: Acetaminophen 325 MG TAB PO PRN ×4 (02:34→21:34)
[2022-09-12 04:40] LABS: #Eosinphils 0.2 thou/uL (0.0-0.7); #Lymphocytes 0.9 thou/uL (1.20-3.40); #Monocytes 0.8 thou/uL (0.11-0.59); #Neutrophils 5.5 thou/uL (1.40-6.50); %Basophils 0.3 % (0.0-1.0); %Eosinophils 3.2 % (0.0-10.0); %Lymphocytes 12.4 % (21.0-51.0); %Monocytes 10.3 % (0.0-10.0); %Neutrophils 73.9 % (42.0-75.0); Hemoglobin 7.7 g/dL (12.0-16.0); Mean Corpuscular HGB CONC 31.9 g/dL (32.0-36.0); Mean Corpuscular Hemoglobin 26.3 pg (27.0-31.0); Mean Corpuscular Volume 82.5 fL (78.0-98.0); Mean Platelet Volume 7.9 fL (7.4-10.4); Platelet Count 234 thou/uL (130-400); Red Blood Cell (RBC) Count 2.93 mill/uL (4.20-5.40); White Blood Cell (WBC) Count 7.5 thou/uL (4.8-10.8)
[2022-09-12 05:01] LABS: Anion Gap 15 mmol/L (10-20); BUN (Urea Nitrogen) 67 mg/dL (9.8-20.1); Calc. Creatinine Clearance 14 mL/min (70-130); Calcium 10.1 mg/dL (7.8-10.44); Carbon Dioxide 21 mmol/L (23-31); Chloride 108 mmol/L (98-107); Estimated GFR 11; Glucose 95 mg/dL (83-110); Potassium 4.3 mmol/L (3.5-5.1); Sodium 140 mmol/L (136-145)
[2022-09-12] MEDS: Furosemide 40 MG/4 ML VIAL SLOW IVP SCH ×2 (05:58→16:31)
[2022-09-12] MEDS: Isosorbide Dinitrate 20 MG TAB PO SCH ×3 (09:02→20:44)
[2022-09-12] MEDS: CEFAZOLIN 1 GM in Sodium Chloride 0.9% 100 ML IVPB SCH ×2 (09:02→20:43)
[2022-09-12] MEDS: hydrALAZINE 25 MG TAB PO SCH ×3 (09:02→20:44)
[2022-09-12] MEDS: DOBUTamine 500 mg/250 ml 500 MG in Premix Bag 1 BAG IVPB SCH (13:42)
[2022-09-12] MEDS: Heparin 5,000 UNITS/ML VIAL SC SCH (20:44)
[2022-09-13] MEDS: Acetaminophen 325 MG TAB PO PRN ×3 (02:00→20:29)
[2022-09-13 05:07] LABS: #Eosinphils 0.2 thou/uL (0.0-0.7); #Lymphocytes 0.9 thou/uL (1.20-3.40); #Monocytes 0.7 thou/uL (0.11-0.59); #Neutrophils 5.4 thou/uL (1.40-6.50); %Basophils 0.1 % (0.0-1.0); %Lymphocytes 11.7 % (21.0-51.0); %Monocytes 9.5 % (0.0-10.0); %Neutrophils 75.6 % (42.0-75.0); Hemoglobin 7.3 g/dL (12.0-16.0); Mean Corpuscular HGB CONC 30.2 g/dL (32.0-36.0); Mean Corpuscular Hemoglobin 25.2 pg (27.0-31.0); Mean Corpuscular Volume 83.4 fL (78.0-98.0); Mean Platelet Volume 8.2 fL (7.4-10.4); Platelet Count 221 thou/uL (130-400); RBC Distribution Width 16.1 % (11.5-14.5); Red Blood Cell (RBC) Count 2.91 mill/uL (4.20-5.40); White Blood Cell (WBC) Count 7.2 thou/uL (4.8-10.8)
[2022-09-13 05:22] LABS: Anion Gap 14 mmol/L (10-20); BUN (Urea Nitrogen) 68 mg/dL (9.8-20.1); Calc. Creatinine Clearance 13 mL/min (70-130); Calcium 9.7 mg/dL (7.8-10.44); Carbon Dioxide 23 mmol/L (23-31); Chloride 107 mmol/L (98-107); Estimated GFR 10; Glucose 95 mg/dL (83-110); Potassium 3.9 mmol/L (3.5-5.1); Sodium 140 mmol/L (136-145)
[2022-09-13] MEDS: Furosemide 40 MG/4 ML VIAL SLOW IVP SCH (05:54)
[2022-09-13] MEDS: DOBUTamine 500 mg/250 ml 500 MG in Premix Bag 1 BAG IVPB SCH (06:25)
[2022-09-13] MEDS: hydrALAZINE 25 MG TAB PO SCH ×3 (09:15→20:28)
[2022-09-13] MEDS: CEFAZOLIN 1 GM in Sodium Chloride 0.9% 100 ML IVPB SCH ×2 (09:16→20:30)
[2022-09-13] MEDS: Isosorbide Dinitrate 20 MG TAB PO SCH ×3 (09:16→20:28)
[2022-09-13] MEDS: Heparin 5,000 UNITS/ML VIAL SC SCH ×2 (09:16→20:30)
[2022-09-13] MEDS: Levothyroxine Sodium 125 MCG TAB PO SCH (20:29)
[2022-09-14 08:32] LABS: #Eosinphils 0.3 thou/uL (0.0-0.7); #Lymphocytes 0.8 thou/uL (1.20-3.40); #Monocytes 0.7 thou/uL (0.11-0.59); #Neutrophils 4.7 thou/uL (1.40-6.50); %Basophils 0.7 % (0.0-1.0); %Eosinophils 4.3 % (0.0-10.0); %Lymphocytes 11.9 % (21.0-51.0); %Monocytes 10.8 % (0.0-10.0); %Neutrophils 72.3 % (42.0-75.0); Mean Corpuscular HGB CONC 30.6 g/dL (32.0-36.0); Mean Corpuscular Hemoglobin 25.4 pg (27.0-31.0); Mean Corpuscular Volume 82.9 fL (78.0-98.0); Mean Platelet Volume 7.9 fL (7.4-10.4); Platelet Count 228 thou/uL (130-400); RBC Distribution Width 15.8 % (11.5-14.5); Red Blood Cell (RBC) Count 3.14 mill/uL (4.20-5.40); White Blood Cell (WBC) Count 6.6 thou/uL (4.8-10.8)
[2022-09-14 08:53] LABS: Anion Gap 16 mmol/L (10-20); BUN (Urea Nitrogen) 71 mg/dL (9.8-20.1); Calc. Creatinine Clearance 13 mL/min (70-130); Calcium 9.7 mg/dL (7.8-10.44); Carbon Dioxide 21 mmol/L (23-31); Chloride 106 mmol/L (98-107); Estimated GFR 10; Glucose 86 mg/dL (83-110); Sodium 139 mmol/L (136-145)
[2022-09-14] MEDS: Acetaminophen 325 MG TAB PO PRN (09:36)
[2022-09-14] MEDS: Aripiprazole 10 MG TAB PO SCH (09:36)
[2022-09-14] MEDS: Isosorbide Dinitrate 20 MG TAB PO SCH ×3 (09:37→20:14)
[2022-09-14] MEDS: hydrALAZINE 25 MG TAB PO SCH ×3 (09:37→20:13)
[2022-09-14] MEDS: Heparin 5,000 UNITS/ML VIAL SC SCH ×2 (09:37→20:11)
[2022-09-14] MEDS: CEFAZOLIN 1 GM in Sodium Chloride 0.9% 100 ML IVPB SCH (09:37)
[2022-09-14 11:41] LABS: Reticulocyte Count 1.1 % (0.5-1.5)
[2022-09-14 12:05] LABS: Iron Binding Capacity, Total 176 mcg/dL (265-497); Magnesium 2.2 mg/dL (1.6-2.6)
[2022-09-14 12:06] LABS: Iron 15 ug/dL (50-170)
[2022-09-14 12:22] LABS: Ferritin 114.28 ng/mL (10-291)
[2022-09-14] MEDS: Levothyroxine Sodium 125 MCG TAB PO SCH (20:14)
[2022-09-15 04:37] LABS: #Eosinphils 0.3 thou/uL (0.0-0.7); #Lymphocytes 0.8 thou/uL (1.20-3.40); #Monocytes 0.7 thou/uL (0.11-0.59); #Neutrophils 4.3 thou/uL (1.40-6.50); %Basophils 0.6 % (0.0-1.0); %Eosinophils 5.3 % (0.0-10.0); %Lymphocytes 12.7 % (21.0-51.0); %Monocytes 11.4 % (0.0-10.0); %Neutrophils 69.9 % (42.0-75.0); Hemoglobin 7.5 g/dL (12.0-16.0); Mean Corpuscular HGB CONC 31.2 g/dL (32.0-36.0); Mean Corpuscular Hemoglobin 25.8 pg (27.0-31.0); Mean Corpuscular Volume 82.7 fl (78.0-98.0); Mean Platelet Volume 8.3 fL (7.4-10.4); Platelet Count 222 thou/uL (130-400); RBC Distribution Width 15.9 % (11.5-14.5); White Blood Cell (WBC) Count 6.1 thou/uL (4.8-10.8)
[2022-09-15 05:05] LABS: Anion Gap 14 mmol/L (10-20); BUN (Urea Nitrogen) 70 mg/dL (9.8-20.1); Calc. Creatinine Clearance 12 mL/min (70-130); Calcium 9.8 mg/dL (7.8-10.44); Carbon Dioxide 22 mmol/L (23-31); Chloride 103 mmol/L (98-107); Estimated GFR 11; Glucose 81 mg/dL (83-110); Magnesium 2.2 mg/dL (1.6-2.6); Sodium 135 mmol/L (136-145)
[2022-09-15] MEDS: DOPamine 400 MG/D5W 250 ML 250 ML IVPB SCH (07:27)
[2022-09-15] MEDS: CEFAZOLIN 1 GM in Sodium Chloride 0.9% 100 ML IVPB SCH ×2 (08:20)
[2022-09-15] MEDS: Acetaminophen 325 MG TAB PO SCH ×2 (08:20→12:21)
[2022-09-15] MEDS: hydrALAZINE 25 MG TAB PO SCH ×3 (08:21→21:33)
[2022-09-15] MEDS: Isosorbide Dinitrate 20 MG TAB PO SCH ×3 (08:21→21:34)
[2022-09-15] MEDS: Aripiprazole 10 MG TAB PO SCH (08:22)
[2022-09-15] MEDS: Heparin 5,000 UNITS/ML VIAL SC SCH ×2 (08:25→21:35)
[2022-09-15] MEDS: Levothyroxine Sodium 125 MCG TAB PO SCH (21:34)
[2022-09-15] MEDS: Senokot S 8.6-50 MG TAB PO SCH (21:34)
[2022-09-15] MEDS: DOBUTamine 500 mg/250 ml 500 MG in Premix Bag 1 BAG IVPB SCH (22:06)
[2022-09-16] MEDS: Acetaminophen 325 MG TAB PO PRN ×2 (02:03→18:11)
[2022-09-16 05:05] LABS: #Eosinphils 0.1 thou/uL (0.0-0.7); #Monocytes 0.7 thou/uL (0.11-0.59); #Neutrophils 4.5 thou/uL (1.40-6.50); %Basophils 0.5 % (0.0-1.0); %Eosinophils 2.2 % (0.0-10.0); %Lymphocytes 15.3 % (21.0-51.0); %Monocytes 11.1 % (0.0-10.0); %Neutrophils 70.9 % (42.0-75.0); Hemoglobin 8.9 g/dL (12.0-16.0); Mean Corpuscular HGB CONC 30.6 g/dL (32.0-36.0); Mean Corpuscular Hemoglobin 25.2 pg (27.0-31.0); Mean Corpuscular Volume 82.5 fl (78.0-98.0); Mean Platelet Volume 8.3 fL (7.4-10.4); Platelet Count 239 thou/uL (130-400); RBC Distribution Width 15.5 % (11.5-14.5); Red Blood Cell (RBC) Count 3.54 mill/uL (4.20-5.40); White Blood Cell (WBC) Count 6.3 thou/uL (4.8-10.8)
[2022-09-16 05:17] LABS: Anion Gap 17 mmol/L (10-20); BUN (Urea Nitrogen) 68 mg/dL (9.8-20.1); Calc. Creatinine Clearance 12 mL/min (70-130); Calcium 10.2 mg/dL (7.8-10.44); Carbon Dioxide 16 mmol/L (23-31); Chloride 106 mmol/L (98-107); Estimated GFR 11; Glucose 87 mg/dL (83-110); Magnesium 2.4 mg/dL (1.6-2.6); Potassium 4.3 mmol/L (3.5-5.1); Sodium 135 mmol/L (136-145)
[2022-09-16] MEDS: Aripiprazole 10 MG TAB PO SCH (09:47)
[2022-09-16] MEDS: hydrALAZINE 25 MG TAB PO SCH ×3 (09:48→20:08)
[2022-09-16] MEDS: CEFAZOLIN 1 GM in Sodium Chloride 0.9% 100 ML IVPB SCH (09:49)
[2022-09-16] MEDS: Isosorbide Dinitrate 20 MG TAB PO SCH ×3 (09:49→20:08)
[2022-09-16] MEDS: Senokot S 8.6-50 MG TAB PO SCH ×2 (09:49→20:07)
[2022-09-16] MEDS: Heparin 5,000 UNITS/ML VIAL SC SCH ×2 (09:50→20:09)
[2022-09-16] MEDS: Ferrous Sulfate 325 MG TAB PO SCH (18:10)
[2022-09-16] MEDS: DOBUTamine 500 mg/250 ml 500 MG in Premix Bag 1 BAG IVPB SCH (18:13)
[2022-09-16] MEDS: DOPamine 400 MG/D5W 250 ML 250 ML IVPB SCH (18:15)
[2022-09-16] MEDS: Levothyroxine Sodium 125 MCG TAB PO SCH (20:09)
[2022-09-17 04:55] LABS: #Eosinphils 0.2 thou/uL (0.0-0.7); #Lymphocytes 0.7 thou/uL (1.20-3.40); #Monocytes 0.6 thou/uL (0.11-0.59); #Neutrophils 3.6 thou/uL (1.40-6.50); %Basophils 0.3 % (0.0-1.0); %Eosinophils 4.1 % (0.0-10.0); %Lymphocytes 13.7 % (21.0-51.0); %Neutrophils 69.9 % (42.0-75.0); Hemoglobin 9.2 g/dL (12.0-16.0); Mean Corpuscular HGB CONC 30.8 g/dL (32.0-36.0); Mean Corpuscular Hemoglobin 25.9 pg (27.0-31.0); Mean Corpuscular Volume 84.2 fl (78.0-98.0); Mean Platelet Volume 7.9 fL (7.4-10.4); Platelet Count 258 thou/uL (130-400); RBC Distribution Width 15.5 % (11.5-14.5); Red Blood Cell (RBC) Count 3.53 mill/uL (4.20-5.40); White Blood Cell (WBC) Count 5.1 thou/uL (4.8-10.8)
[2022-09-17 05:06] LABS: Anion Gap 14 mmol/L (10-20); BUN (Urea Nitrogen) 73 mg/dL (9.8-20.1); Calc. Creatinine Clearance 13 mL/min (70-130); Carbon Dioxide 21 mmol/L (23-31); Chloride 108 mmol/L (98-107); Estimated GFR 11; Glucose 97 mg/dL (83-110); Magnesium 2.5 mg/dL (1.6-2.6); Potassium 4.3 mmol/L (3.5-5.1); Sodium 139 mmol/L (136-145)
[2022-09-17] MEDS: Ferrous Sulfate 325 MG TAB PO SCH ×2 (09:42→16:00)
[2022-09-17] MEDS: Senokot S 8.6-50 MG TAB PO SCH ×2 (09:42→20:58)
[2022-09-17] MEDS: hydrALAZINE 25 MG TAB PO SCH ×3 (09:42→22:51)
[2022-09-17] MEDS: CEFAZOLIN 1 GM in Sodium Chloride 0.9% 100 ML IVPB SCH (09:42)
[2022-09-17] MEDS: Isosorbide Dinitrate 20 MG TAB PO SCH ×3 (09:42→22:52)
[2022-09-17] MEDS: Heparin 5,000 UNITS/ML VIAL SC SCH ×2 (09:42→22:53)
[2022-09-17] MEDS: Carvedilol 6.25 MG TAB PO SCH ×2 (09:42→22:51)
[2022-09-17] MEDS: Aripiprazole 10 MG TAB PO SCH (09:42)
[2022-09-17] MEDS: Levothyroxine Sodium 125 MCG TAB PO SCH (22:51)
[2022-09-17] MEDS: Acetaminophen 325 MG TAB PO PRN (22:53)
[2022-09-18] MEDS: DOBUTamine 500 mg/250 ml 500 MG in Premix Bag 1 BAG IVPB SCH (04:00)
[2022-09-18] MEDS: Acetaminophen 325 MG TAB PO PRN ×2 (04:13→22:07)
[2022-09-18 04:52] LABS: #Eosinphils 0.3 thou/uL (0.0-0.7); #Lymphocytes 1.1 thou/uL (1.20-3.40); #Monocytes 0.7 thou/uL (0.11-0.59); #Neutrophils 3.8 thou/uL (1.40-6.50); %Basophils 0.7 % (0.0-1.0); %Eosinophils 5.3 % (0.0-10.0); %Monocytes 12.2 % (0.0-10.0); %Neutrophils 63.8 % (42.0-75.0); Hemoglobin 8.6 g/dL (12.0-16.0); Mean Corpuscular HGB CONC 31.2 g/dL (32.0-36.0); Mean Corpuscular Hemoglobin 25.7 pg (27.0-31.0); Mean Corpuscular Volume 82.2 fl (78.0-98.0); Platelet Count 284 thou/uL (130-400); Red Blood Cell (RBC) Count 3.36 mill/uL (4.20-5.40)
[2022-09-18 05:11] LABS: Anion Gap 13 mmol/L (10-20); BUN (Urea Nitrogen) 65 mg/dL (9.8-20.1); Calc. Creatinine Clearance 14 mL/min (70-130); Calcium 9.8 mg/dL (7.8-10.44); Carbon Dioxide 20 mmol/L (23-31); Chloride 109 mmol/L (98-107); Estimated GFR 13; Glucose 88 mg/dL (83-110); Magnesium 2.2 mg/dL (1.6-2.6); Potassium 4.1 mmol/L (3.5-5.1); Sodium 138 mmol/L (136-145)
[2022-09-18] MEDS ORDERED: DOBUTamine 500 mg/250 ml 500 MG in Premix Bag 1 BAG IVPB SCH (08:15)
[2022-09-18] MEDS: Carvedilol 6.25 MG TAB PO SCH ×2 (08:40→21:42)
[2022-09-18] MEDS: Senokot S 8.6-50 MG TAB PO SCH ×2 (08:40→21:41)
[2022-09-18] MEDS: Isosorbide Dinitrate 20 MG TAB PO SCH ×3 (08:40→21:43)
[2022-09-18] MEDS: hydrALAZINE 25 MG TAB PO SCH ×3 (08:40→21:45)
[2022-09-18] MEDS: Aripiprazole 10 MG TAB PO SCH (08:40)
[2022-09-18] MEDS: Heparin 5,000 UNITS/ML VIAL SC SCH ×2 (08:40→21:43)
[2022-09-18] MEDS: Ferrous Sulfate 325 MG TAB PO SCH ×2 (08:40→16:37)
[2022-09-18] MEDS ORDERED: Bumetanide 1 MG TAB PO SCH (09:00)
[2022-09-18] MEDS: CEFAZOLIN 1 GM in Sodium Chloride 0.9% 100 ML IVPB SCH (09:54)
[2022-09-18 12:58] VITALS: BMI 27.0
[2022-09-18] MEDS: Levothyroxine Sodium 125 MCG TAB PO SCH (21:44)
[2022-09-19 04:46] LABS: #Eosinphils 0.3 thou/uL (0.0-0.7); #Monocytes 0.6 thou/uL (0.11-0.59); #Neutrophils 3.4 thou/uL (1.40-6.50); %Basophils 0.4 % (0.0-1.0); %Eosinophils 5.8 % (0.0-10.0); %Lymphocytes 18.8 % (21.0-51.0); %Monocytes 10.6 % (0.0-10.0); %Neutrophils 64.4 % (42.0-75.0); Hemoglobin 8.6 g/dL (12.0-16.0); Mean Corpuscular HGB CONC 30.2 g/dL (32.0-36.0); Mean Corpuscular Volume 82.9 fl (78.0-98.0); Mean Platelet Volume 8.1 fL (7.4-10.4); Platelet Count 284 thou/uL (130-400); RBC Distribution Width 16.1 % (11.5-14.5); Red Blood Cell (RBC) Count 3.41 mill/uL (4.20-5.40); White Blood Cell (WBC) Count 5.3 thou/uL (4.8-10.8)
[2022-09-19 05:12] LABS: Anion Gap 13 mmol/L (10-20); BUN (Urea Nitrogen) 57 mg/dL (9.8-20.1); Calc. Creatinine Clearance 16 mL/min (70-130); Calcium 9.7 mg/dL (7.8-10.44); Carbon Dioxide 20 mmol/L (23-31); Chloride 110 mmol/L (98-107); Estimated GFR 14; Glucose 91 mg/dL (83-110); Magnesium 2.3 mg/dL (1.6-2.6); Potassium 4.2 mmol/L (3.5-5.1); Sodium 139 mmol/L (136-145)
[2022-09-19] MEDS ORDERED: Bumetanide 1 MG TAB PO SCH (09:00)
[2022-09-19] MEDS: Heparin 5,000 UNITS/ML VIAL SC SCH ×2 (09:03→20:38)
[2022-09-19] MEDS: hydrALAZINE 25 MG TAB PO SCH ×3 (09:08→20:36)
[2022-09-19] MEDS: Isosorbide Dinitrate 20 MG TAB PO SCH ×3 (09:09→20:37)
[2022-09-19] MEDS: Senokot S 8.6-50 MG TAB PO SCH ×2 (09:09→20:36)
[2022-09-19] MEDS: Carvedilol 6.25 MG TAB PO SCH ×2 (09:09→20:37)
[2022-09-19] MEDS: Ferrous Sulfate 325 MG TAB PO SCH ×2 (09:09→16:11)
[2022-09-19] MEDS: Aripiprazole 10 MG TAB PO SCH (09:10)
[2022-09-19] MEDS: CEFAZOLIN 1 GM in Sodium Chloride 0.9% 100 ML IVPB SCH (09:12)
[2022-09-19] MEDS ORDERED: DOPamine 400 MG/D5W 250 ML 250 ML IVPB SCH (15:00)
[2022-09-19] MEDS: Acetaminophen 325 MG TAB PO PRN (20:37)
[2022-09-19] MEDS: Levothyroxine Sodium 125 MCG TAB PO SCH (20:37)
[2022-09-20 05:18] LABS: #Eosinphils 0.3 thou/uL (0.0-0.7); #Lymphocytes 1.2 thou/uL (1.20-3.40); #Monocytes 0.5 thou/uL (0.11-0.59); #Neutrophils 3.7 thou/uL (1.40-6.50); %Basophils 0.1 % (0.0-1.0); %Eosinophils 4.7 % (0.0-10.0); %Lymphocytes 20.7 % (21.0-51.0); %Monocytes 9.4 % (0.0-10.0); %Neutrophils 65.2 % (42.0-75.0); Hemoglobin 8.4 g/dL (12.0-16.0); Mean Corpuscular HGB CONC 29.9 g/dL (32.0-36.0); Mean Corpuscular Hemoglobin 24.9 pg (27.0-31.0); Mean Corpuscular Volume 83.1 fl (78.0-98.0); Mean Platelet Volume 7.7 fL (7.4-10.4); Platelet Count 281 thou/uL (130-400); RBC Distribution Width 16.1 % (11.5-14.5); Red Blood Cell (RBC) Count 3.37 mill/uL (4.20-5.40); White Blood Cell (WBC) Count 5.7 thou/uL (4.8-10.8)
[2022-09-20 05:31] LABS: Anion Gap 13 mmol/L (10-20); BUN (Urea Nitrogen) 56 mg/dL (9.8-20.1); Calc. Creatinine Clearance 15 mL/min (70-130); Calcium 9.7 mg/dL (7.8-10.44); Carbon Dioxide 19 mmol/L (23-31); Chloride 112 mmol/L (98-107); Estimated GFR 13; Glucose 104 mg/dL (83-110); Magnesium 2.2 mg/dL (1.6-2.6); Potassium 4.2 mmol/L (3.5-5.1); Sodium 140 mmol/L (136-145)
[2022-09-20] MEDS: CEFAZOLIN 1 GM in Sodium Chloride 0.9% 100 ML IVPB SCH (09:01)
[2022-09-20] MEDS: Ferrous Sulfate 325 MG TAB PO SCH ×2 (09:02→15:53)
[2022-09-20] MEDS: hydrALAZINE 25 MG TAB PO SCH ×3 (09:03→20:11)
[2022-09-20] MEDS: Senokot S 8.6-50 MG TAB PO SCH ×2 (09:03→20:12)
[2022-09-20] MEDS: Aripiprazole 10 MG TAB PO SCH (09:03)
[2022-09-20] MEDS: Isosorbide Dinitrate 20 MG TAB PO SCH ×3 (09:05→20:11)
[2022-09-20] MEDS: Carvedilol 6.25 MG TAB PO SCH ×2 (09:06→20:12)
[2022-09-20] MEDS: Heparin 5,000 UNITS/ML VIAL SC SCH ×2 (09:06→20:12)
[2022-09-20] MEDS: Levothyroxine Sodium 125 MCG TAB PO SCH (20:12)
[2022-09-21] MEDS: Isosorbide Dinitrate 20 MG TAB PO SCH ×2 (10:01→17:09)
[2022-09-21] MEDS: CEFAZOLIN 1 GM in Sodium Chloride 0.9% 100 ML IVPB SCH (10:01)
[2022-09-21] MEDS: Aripiprazole 10 MG TAB PO SCH (10:01)
[2022-09-21] MEDS: hydrALAZINE 25 MG TAB PO SCH ×2 (10:01→17:09)
[2022-09-21] MEDS: Carvedilol 6.25 MG TAB PO SCH (10:02)
[2022-09-21] MEDS: Heparin 5,000 UNITS/ML VIAL SC SCH ×2 (10:02→10:09)
[2022-09-21] MEDS: Ferrous Sulfate 325 MG TAB PO SCH ×2 (10:02→17:09)
[2022-09-21] MEDS: Senokot S 8.6-50 MG TAB PO SCH (10:10)
[2022-09-21 12:09] VITALS: TEMP 97.8
[2022-09-21 16:00] VITALS: BP 141/66
[2022-09-22] MEDS ORDERED: Bumetanide 1 MG TAB PO SCH (09:00)
== END 2022-09-21 18:00 | disposition home or self-care (01) | DRG 291 ==
LOC: ERS 08:14 → 2NO 10:39
PROVIDERS: ADMIT Internal Medicine; ATTEND Internal Medicine
PROC: 30233N1 Transfusion of Nonautologous Red Blood Cells into Peripheral Vein, Percutaneous Approach (ICD-10-PCS; principal; 2022-09-15)
DX: I13.0 Hypertensive heart and chronic kidney disease with heart failure and stage 1 through stage 4 chronic kidney disease, or unspecified chronic kidney disease (principal); I50.23 Acute on chronic systolic (congestive) heart failure; J96.01 Acute respiratory failure with hypoxia; N17.9 Acute kidney failure, unspecified; L03.115 Cellulitis of right lower limb; N18.4 Chronic kidney disease, stage 4 (severe); L03.116 Cellulitis of left lower limb; R18.8 Other ascites; E87.1 Hypo-osmolality and hyponatremia; Z20.822 Contact with and (suspected) exposure to COVID-19; Z66 Do not resuscitate; E03.9 Hypothyroidism, unspecified; I42.8 Other cardiomyopathies; Z90.710 Acquired absence of both cervix and uterus; Z79.890 Hormone replacement therapy; Z79.899 Other long term (current) drug therapy; Z88.8 Allergy status to other drugs, medicaments and biological substances; Z82.3 Family history of stroke; Z82.49 Family history of ischemic heart disease and other diseases of the circulatory system; Z81.8 Family history of other mental and behavioral disorders; Z83.1 Family history of other infectious and parasitic diseases; I08.0 Rheumatic disorders of both mitral and aortic valves; Z88.6 Allergy status to analgesic agent; D63.1 Anemia in chronic kidney disease; I87.2 Venous insufficiency (chronic) (peripheral); E87.5 Hyperkalemia; D17.71 Benign lipomatous neoplasm of kidney; F31.9 Bipolar disorder, unspecified
CPT/HCPCS: 36415; 36430; 71045; 74176; 80048; 80053; 81001; 82607; 82728; 83540; 83550; 83605; 83735; 83880; 84484; 85025; 85046; 86850; 86900; 86901; 87040; 93005; 93306; 93970; 96365; 97139; J0690; J1250; J1265; J1644; J1940; J3490; P9016; P9047; U0003; U0005